=== PATIENT | male | born 1965 | race African-American/Black ===

== ENCOUNTER 2022-12-20 13:34 | Outpatient (CLI) | payer BC, SELFPAY ==
--- NOTE | ~2022-12-20 | PE_ITS ---
EXAMINATION: PET_PETPSMAST_PT DATE: 12/20/2022 16:06 INDICATION: Prostate cancer with elevated PSA level TECHNIQUE: 9.904 mCi of pipflufolastat F-18 (18-F-DCFPyL) was administered i.v. Low dose computed to mography (CT) images were acquired from the base of the brain to the base of the brain to the proxima l thighs for attenuation correction and anatomic localization. Positron emission tomography (PET) ambreen ges were acquired in the same distribution beginning 100 minutes after injection. Images including fu sed PET/CT images were reconstructed in axial, coronal, and sagittal planes. Automated exposure contr ol technique was employed. The dose-length product was 617.14mGy-cm. COMPARISON: None FINDINGS: Head/neck: Typical pattern of symmetric physiologic increased activity in the lacrimal, parotid and submandibula r glands as well as along the mucosa of the nasal and oral cavities, the lida-, naso- and hypopharynx, the glottis and esophagus. No pathologically enlarged cervical lymphadenopathy or suspicious foci of increased uptake in the visualized head or neck. Chest: There are couple calcified nodule along the right minor fissure which along with calcified right reagan r lymph nodes are consistent with old granulomatous disease. No suspicious pulmonary nodules, pneumon ia, pulmonary edema or pleural effusion. Heart size is normal. No pericardial effusion. Thoracic aort a is normal in caliber. Abdomen/pelvis/proximal thighs: Physiologic renal accumulation and excretion of activity in the kidneys, bladder and along portions o f ureters. Normal degree and slightly heterogenous pattern of increased uptake throughout the liver a nd spleen without radiologic correlate or dominant PSMA avid lesion. The gallbladder, pancreas and bi lateral adrenal glands are normal. Moderate uptake scattered throughout the bowels with typical duode nal and proximal jejunal predominance and without radiologic correlate, also likely physiologic. Ther e are couple foci of increased PSMA activity at the right side of the prostate with maximal SUV of 6. 6. Grayscale imaging is limited and the SUV value may be underestimated due to dense metallic streak artifact extending across the prostate and portions of the central deep pelvis resulting from bilater al total hip arthroplasties. No other abnormal foci of increased uptake or pathologically enlarged ly mphadenopathy in the abdomen, pelvis or proximal thighs. Musculoskeletal: No suspicious lytic, blastic or PSMA avid bone lesions. IMPRESSION: 1. 2 foci of increased PSMA uptake in the right side of the prostate consistent with provided history of prostate cancer. Assessment at this location and portions of the surrounding deep pelvis is limit ed by dense metallic streak artifact related to a lateral total hip arthroplasties. 2. No evident metastatic disease. Reviewed, dictated and finalized at location A. IMPRESSION: 1. 2 foci of increased PSMA uptake in the right side of the prostate consistent with provided history of prostate cancer. Assessment at this location and port ions of the surrounding deep pelvis is limited by dense metallic streak artifac t related to a lateral total hip arthroplasties. 2. No evident metastatic disease.
== END 2022-12-20 13:35 | disposition home or self-care (01) ==
LOC: ANHIMG 13:35
PROVIDERS: PCP Family Medicine; Visit Provider Urology
DX: C61 Malignant neoplasm of prostate (principal)
CPT/HCPCS: 78815; A9595

== ENCOUNTER 2023-01-25 10:01 | Outpatient (CLI) | payer BC, SELFPAY ==
--- NOTE | 2023-01-25 11:36 | ECG_ITS ---
Measurements Intervals [place] Rate: 66 P: 49 [place]: 175 QRS: 16 QRSD: 97 T: 36 QT: 365 QTc: 385 Interpretive Statements SINUS RHYTHM BASELINE ARTIFACT- I, II, III, AVR, AVL, AVF NORMAL ECG NO PREVIOUS ECG AVAILABLE FOR COMPARISON Electronically Signed On 01-25-2023 12:33:34 CDT by Harris Gold D.O.
[2023-01-25 12:11] LABS: Basophils Percent Auto 0.3 % (0.2-1.2); Eosinophils Absolute Auto 0.1 K/mm3 (0-0.3); Eosinophils Percent Auto 1.1 % (0-4.4); Hematocrit 47.2 % (42.0-52.0); Hemoglobin 15.9 g/dL (14.0-18.0); Immature Granulocyte Absolute 0.01 K/mm3 (0.00-0.031); Immature Granulocyte Percent A 0.2 % (0-0.5); Lymphocytes Absolute Auto 3.57 K/mm3 (0.9-3.2); Lymphocytes Percent Auto 57.5 % (18.3-44.2); Mean Corpuscular HGB Conc 33.7 g/dl (32-36); Mean Corpuscular Hemoglobin 31.1 pg (26-34); Mean Corpuscular Volume 92.2 fl (80-100); Mean Platelet Volume 9.4 fl (7.4-10.4); Monocytes Absolute Auto 0.5 K/mm3 (0.1-0.6); Monocytes Percent Auto 7.6 % (2.6-8.5); Neutrophils Absolute Auto 2.1 K/mm3 (1.3-6.7); Neutrophils Percent Auto 33.3 % (45.5-73.1); Platelet Count Result 197 k/mm3 (150-375); Red Blood Count 5.12 M/mm3 (4.6-6.20); Red Cell Distribution Width 12.3 % (11.5-14.5); White Blood Count 6.2 K/mm3 (4.5-10.0)
[2023-01-25 12:20] LABS: Alanine Aminotransferase 21 U/L (6-50); Albumin Level 4.8 g/dL (3.5-5.1); Alkaline Phosphatase 68 U/L (38-126); Anion Gap 7 mmol/L (8-16); Aspartate Amino Transferase 27 U/L (17-59); Bilirubin,Total 0.6 mg/dL (0.2-1.3); Blood Urea Nitrogen 15 mg/dL (9-20); Calcium 9.5 mg/dL (8.4-10.2); Carbon Dioxide 31 mmol/L (22-30); Chloride 103 mmol/L (98-107); Estimated Glomerular Filt Rate > 60; Glucose 87 mg/dL (65-110); Potassium 4.5 mmol/L (3.4-5.0); Sodium 141 mmol/L (137-145)
[2023-01-25 12:26] LABS: INR 0.9; Prothrombin Time 12.7 Seconds (11.1-14.7)
[2023-01-25 12:27] LABS: Partial Thromboplastin Time 26.9 SECONDS (22.3-36.8)
== END 2023-01-25 10:02 | disposition home or self-care (01) ==
PROVIDERS: PCP Family Medicine; Visit Provider Urology
DX: C61 Malignant neoplasm of prostate (principal); Z01.818 Encounter for other preprocedural examination
CPT/HCPCS: 36415; 80053; 85025; 85610; 85730; 86850; 86900; 86901; 87086; 93005

== ENCOUNTER 2023-02-07 17:22 | Observation (INO) | payer BC, SELFPAY ==
[2023-01-25 10:36] VITALS: BMI 31.1
--- NOTE | 2023-01-25 10:53 | PC.NURSE ---
Report to the Outpatient Waiting Room, entrance under the green pavilion located off [facility], at time __6:00AM on date __02/06/23 . Planned Procedure Time: __7:30AM . Time changes happen often and if your time is changed the preop area will call you the afternoon before. - You and your visitor will be asked to self-screen and do not enter if you have any COVID symptoms. - A mask is optional within the hospital at this time. Patients may have clear liquids (water, carbonated beverages, clear teas, apple juice) until 3 hours prior to surgery with a maximum of 20 ounces. - No food from midnight until time of surgery. Take the following medications with a SIP of water the morning of surgery: ___VERAPAMIL DO NOT STOP ANY OF YOUR OTHER PRESCRIPTION MEDICATIONS PRIOR TO SURGERY ?EXCEPT THE FOLLOWING Medications to discontinue per physician ___HOLD ALL NSAIDS(IBUPROFEN) AND ALL VITAMINS/SUPPLEMENTS 7 DAYS PRE-OP PER DR JONES___ Date to take last dose___01/30/23 Please no make-up, nail vietnamese, hairspray, perfume, deodorant, or body powder the day of surgery. No jewelry (including any body piercings) or valuables the day of surgery, leave them at home. Please take a shower or bath the night before, or the morning of, surgery with an antibacterial soap. Wear comfortable, loose fitting clothing. - Jewelry must be removed prior to entering the operating room. Rings and piercings that are not removed may be cut off. - The hospital will not accept responsibility for valuables. - Please leave all valuables, including medications, at home the day of surgery. If you are going home after surgery, a licensed driver license reviewing officer must drive you home. - NO public transportation without another adult if you receive anesthesia. - We recommend that an adult stay with you for 24 hours following discharge. - We also recommend that you do not drive, make important decision, drink alcoholic beverages, or take any drugs that were not prescribed by your health care provider for at least 24 hours after your discharge time. Follow any additional instructions given to you from your surgeon. If you or anyone in your household have experienced Covid symptoms in the past week, please notify your surgeon or the nurse liaison at the phone number below for possible testing. Telephone instructions given to __PATIENT and asked if any additional questions and then verbalized understanding. Patient advised to call surgeon office or pre surgery nurse liaison [phone] if any additional questions.
[2023-01-25 11:19] VITALS: BP 128/90; PULSE 73; RESP 16; TEMP 37; O2SAT 96
[2023-02-06] VITALS (15 sets, daily range): BP systolic 98–134; BP diastolic 55–79; PULSE 65–101; RESP 16–22; TEMP 35.8–36.6; O2SAT 93–100; BMI 32.8
[2023-02-06] MEDS: LACTATED RINGERS 1,000 ML 30 ML IV CONT ×2 (06:30→13:31)
--- NOTE | 2023-02-06 06:36 | WPDANESEPPF ---
Anes - Initial Pre Proc Eval Procedure: Operation Date: 02/06/23 07:30 Proposed Procedures p Robotic Assisted Nerve Sparing Prostatectomy, Possible Lymph Node Dissection - Wan Ferrara MD Date/Time: 02/06/23 06:36 Surgeon: Wan Ferrara MD Pre Op Diagnosis: Prostate Ca Patient Data Age: 57 Gender: M Height: 1.78 m Weight: 98.3 kg Last Vital Signs Temp 37.0 C 01/25/23 11:19 Pulse 73 01/25/23 11:19 Resp 16 01/25/23 11:19 BP 128/90 01/25/23 11:19 Pulse Ox 96 01/25/23 11:19 O2 Del Method Room Air 01/25/23 11:19 Allergies Allergy/AdvReac Type Severity Reaction Status Date / Time topiramate [From Topamax] AdvReac Numbness Verified 01/25/23 10:18 in hands/toes Home Medications Medication Instructions Recorded Confirmed Type acetaminophen 500 mg capsule 1,000 mg PO Q6H PRN Pain 01/25/23 01/25/23 History atogepant 60 mg tablet (Qulipta) 60 mg PO DAILY 01/25/23 01/25/23 History cholecalciferol (vitamin D3) 50 50 mcg PO DAILY 01/25/23 01/25/23 History mcg (2,000 unit) capsule divalproex 500 mg tablet,delayed 500 mg PO HS 01/25/23 01/25/23 History release famotidine 20 mg tablet 20 mg PO DAILY 01/25/23 01/25/23 History ibuprofen 800 mg tablet 800 mg PO Q6H PRN Pain 01/25/23 01/25/23 History pantoprazole 40 mg tablet,delayed 40 mg PO QAM 01/25/23 01/25/23 History release sumatriptan succinate 100 mg tablet 100 mg PO ONCE PRN Migraine 01/25/23 01/25/23 History Headache sumatriptan succinate 6 mg/0.5 mL 6 mg subcut ONCE PRN Migraine 01/25/23 01/25/23 History subcutaneous pen injector Headache trazodone 50 mg tablet 50 mg PO HS 01/25/23 01/25/23 History verapamil 240 mg 24 hr 240 mg PO QAM 01/25/23 01/25/23 History capsule,extended release Patient hx anesthesia problems: none Family hx anesthesia problems: none Results Review: All pre-operative results and documents have been reviewed as part of the pre-operative evaluation. [facility] Past Medical History Medical History (Updated 02/06/23 @ 06:37 by Trell Ricketts MD) Prostate cancer Surgical History Surgical History (Updated 02/06/23 @ 06:37 by Trell Ricketts MD) History of shoulder surgery History of total hip arthroplasty Social History Social History Smoking packs per day: 0.2 Smoking cigarettes per day: 4.0 Years smoked: 2 Smoking pack-years: 0.40 Smoking status: Former smoker Smoking end date: 11/04/01 Alcohol intake: current Substance use: never Living arrangements: with family Additional living arrangements comments: Spiritual care concerns: No Anes - Eval Final PreProcedure Day of Procedure 02/06/23 06:36 Patient weight: overweight Heart: regular rate and rhythm Lungs: clear to auscultation Airway: Mallampati scale class II and other (upper denture) Neurological: alert and oriented Last oral intake: >/= 8 hours ASA classification: III Emergent: no Anesthetic plan: proceed Anesthesia type and monitoring: general ETT and standard monitoring Results Review: All pre-operative results and documents have been reviewed as part of the pre-operative evaluation. Informed Consent: The patient's anesthetic plan and its attendant risks and benefits were discussed with the patient/family/POA. Questions were solicited and answers provided to the satisfaction of the patient/family/POA.
--- NOTE | 2023-02-06 07:09 | WPDHPUPDATE1 ---
History and Physical Update Update Date/Time: 02/06/23 07:09 History and Physical has been reviewed, including an updated exam of the patient. There are NO changes in the patient's condition. Risks, benefits, and alternatives have been discussed and questions answered. Patient agrees to proceed with procedure. Proceed with robotic assist nerve sparing prostatectomy with possible plnd
[2023-02-06] MEDS: ceFAZolin 2 GM/D5W 50 ML 2 GM/50 ML BAG IVPB (07:24)
[2023-02-06] MEDS: BUPivacaine HCL 0.5% 10 ML AMP 30 ML INFILTRATE (08:42)
[2023-02-06] MEDS: ceFAZolin SODIUM 1 GM VIAL IV PUSH (11:24)
[2023-02-06] MEDS: METHYLENE BLUE 0.5% INJ 10 ML AMPULE 5 ML IV PUSH (12:38)
--- NOTE | 2023-02-06 13:21 | P.OP_ITS ---
Procedure Note - Detailed Date of Procedure 02/06/23 Pre-op Diagnosis Prostate Ca Post-op Diagnosis Same Procedure Performed Robotic assisted nerve-sparing prostatectomy with bilateral pelvic lymphadenectomy. Repair of cystotomy Surgeon Wan Ferrara MD Anesthesia General Description of Procedure Patient is taken the operative suite correctly identified. Once anesthesia was obtained was placed in dorsal lithotomy in prepped and draped usual sterile fashion. Twenty Colombian Aggarwal was placed. Supraumbilical incision was then made carried down to the rectus fascia. Could not adequately insufflated with a Veress needle in thus a cutdown was performed. Camera port trocar was then placed and secured. Other working ports were placed. He was placed in steep Trendelenburg position and the robot was docked. He had quite a bit of extensive adhesions along the sigmoid area and along the appendix on the right. These were taken down. Posterior approach was then performed. Patient had very lax abdominal wall. Both seminal vesicles were dissected down their entirety. The vas were transected. The plane between the rectum and the prostate was developed. The bladder was then taken down. Space of Retzius was developed bilaterally. Puboprostatic were taken down. Dorsal venous complex was isolated and secured to the pubic bone. The bladder neck was then opened anteriorly. Posterior bladder neck was also transected. It was noted that it was adhered somewhat to the prostate. It was noted later that there was a small cystotomy in the posterior bladder wall. The pedicles were then taken down and clipped. Bilateral nerve-sparing was performed. Dorsal venous complex was transected as was the urethra. Bilateral pelvic lymph node dissection performed with the boundaries being the external iliac vein Iggy's ligament, and the bifurcation. The right obturator packet had a clip placed on it. All specimens were placed in Endo-Catch bag. The posterior cystotomy was then closed using 4-0 Vicryl running fashion. I took more from the bladder neck as the mucosa had inverted. This was sent as a separate specimen. I then everted the mucosa using 4-0 Vicryl. Anastomosis was performed using V lock in a running fashion. There appeared to be good approximation of the urethral mucosa to the bladder neck mucosa. Indigo carmine was then given to the patient. Eighteen Colombian Aggarwal was placed with 10 cc in the balloon. It irrigated nicely. CATHERINE drain was then placed and secured to the skin. The robot was undocked. Specimen was then brought out through the midline incision. Rectus fascia was closed using 0 Vicryl in a running fashion. Subcuticular stitches were placed. It was noted that there was indigo in the bag at the termination of the procedure. Patient is taken recovery stable condition. Will make a decision regarding leaving the catheter in for 2 weeks prior to obtaining a cystogram. All lap count needle count sponge counts were correct. This completes dictation. Please send a copy this to my office. Estimated Blood Loss 100 Drains Yes Packing No Pathology Yes Complications No immediate complications Condition Stable Disposition PACU
[2023-02-06] MEDS: fentaNYL CITRATE INJ (*CRX) 100 MCG/2 ML VIAL 25 MCG IV PUSH ×6 (14:03→15:08)
[2023-02-06] MEDS: HYOSCYAMINE SULFATE 0.125 MG TABLET PO (14:39)
--- NOTE | 2023-02-06 15:48 | ADMGEN ---
This patient, Chris Sen, was admitted to [facility] Surg Room 321-02. Patient/family oriented to hospital policies and general routines including ID bracelet, bed and alarms, visiting hours, pain management, procedures, bathroom and other care routines, personal items, smoking policy, room service/diet, and visiting hours. Information on how to activate the Rapid Response Team has been discussed. Patient/Family are encouraged to report perceived risks to care and to ask questions if they do not understand what they are told or what they should do.
[2023-02-06] MEDS: MORPHINE SULFATE (*CRX) 2 MG/ML INJ IV PUSH ×3 (16:06→22:49)
[2023-02-06] MEDS: LACTATED RINGERS 1,000 ML 125 ML IV CONT ×2 (16:06→22:49)
[2023-02-06] MEDS: HYDROcodone/acetaminophen (*CRX) 5-325 MG TABLET 2 TAB PO (20:25)
[2023-02-06] MEDS: traZODone HCL 50 MG TABLET PO (20:25)
[2023-02-07] VITALS (8 sets, daily range): BP systolic 123–153; BP diastolic 78–87; PULSE 86–106; RESP 16–20; TEMP 36.2–37.7; O2SAT 95–98; BMI 10.0
--- NOTE | ~2023-02-07 | CT_ITS ---
Non-contrast CT scan of the Abdomen and Pelvis Clinical indication: Abdominal pain status post recent prostatectomy Technique: 2.5 mm axial scans were obtained through the abdomen and pelvis without intravenous or or al contrast. Dose reduction technique was used on this scan by utilizing automated exposure control a nd iterative reconstruction technique. The dose-length product (DLP) was 998.07 mGy-cm. Findings: Images through the lung bases reveal bibasilar atelectasis. There is no evidence of renal or ureteral calculi. The kidneys and the ureters are nondilated. The liver, spleen, pancreas, gallbladder, and adrenals appear normal. There is no aortic aneurysm. There is no evidence of bowel obstruction. Percutaneous drain or catheter is present entering via the right mid abdomen. There is small amount of pneumoperitoneum. There is extensive subcutaneous soft t issue edema along the anterior abdominal wall bilaterally, extending along the bilateral flank region s, and into the perineum/scrotum. Images through the pelvis are degraded by streak artifact from bilateral hip arthroplasty. There is a 3.6 x 2.1 cm low-density collection at the left pelvis region (axial image 150), somewhat nonspecifi c.. Urinary bladder poorly evaluated. No gross pelvic mass seen. Impression: Small amount of pneumoperitoneum, as well as extensive subcutaneous soft tissue emphysema, as detaile d above, all which is consistent with postoperative change, related to recent prostatectomy. 3.6 x 2.1 cm low-density collection in the left pelvic region, as detailed above, somewhat indetermin ate. Likely diagnostic considerations could include seroma, lymphocele, or resolving hematoma. Bibasilar atelectatic change in the lungs. Reviewed, dictated and finalized at location M. Impression: Small amount of pneumoperitoneum, as well as extensive subcutaneous soft tissue emphysema, as detailed above, all which is consistent with postoperative benjamin e, related to recent prostatectomy. 3.6 x 2.1 cm low-density collection in the left pelvic region, as detailed abov e, somewhat indeterminate. Likely diagnostic considerations could include serom a, lymphocele, or resolving hematoma. Bibasilar atelectatic change in the lungs.
[2023-02-07] MEDS: MORPHINE SULFATE (*CRX) 2 MG/ML INJ IV PUSH ×3 (03:31→22:18)
[2023-02-07] MEDS: HYDROcodone/acetaminophen (*CRX) 5-325 MG TABLET 2 TAB PO ×2 (05:52→21:47)
[2023-02-07] MEDS: LACTATED RINGERS 1,000 ML 125 ML IV CONT ×2 (05:55→17:23)
[2023-02-07 06:13] LABS: Hematocrit 36.7 % (42.0-52.0); Hemoglobin 12.5 g/dL (14.0-18.0)
[2023-02-07 06:31] LABS: Anion Gap 5 mmol/L (8-16); Blood Urea Nitrogen 13 mg/dL (9-20); Calcium 8.6 mg/dL (8.4-10.2); Carbon Dioxide 28 mmol/L (22-30); Chloride 105 mmol/L (98-107); Estimated CRCL calculation 94 ml/min; Estimated Glomerular Filt Rate > 60; Glucose 118 mg/dL (65-110); Sodium 138 mmol/L (137-145)
--- NOTE | 2023-02-07 08:10 | WPDUROPN2 ---
Progress Note: A&P Assessment and Plan (1) Adenocarcinoma of prostate: Code(s): C61 - Malignant neoplasm of prostate Status: Acute Assessment and Plan: Doing well overall. Needs to increase his activity. Has good urine output and normal renal function. Denies any flank pain. Will plan on leaving CATHERINE in longer possibly to being discharged home with it since he had a cystotomy repair. Will also plan on leaving the Aggarwal catheter in for 2 weeks prior to cystogram. Subjective Subjective Date/Time Seen: 02/07/23 08:10 Post Op day: 1 (Robotic assisted nerve-sparing prostatectomy with bilateral pelvic lymphadenectomy. Repair of cystotomy) Principal diagnosis: Adenocarcinoma prostate Interval history: Patient is doing well overall. He had a robotic prostatectomy and pelvic lymph node dissection. There was a cystotomy along posterior wall which was closed. His urine output has been excellent his creatinine is normal at 0.9. His main issue is some nonspecific abdominal discomfort. There was no discrete area. Exam Const: General: cooperative and comfortable Resp: Effort & Inspection: normal respiratory effort Cardio: Rate: regular rate Rhythm: regular rhythm GI: Inspection: normal to inspection and non-distended GI Palp: Yes Soft to palpation Urinary Catheter: Urinary Catheter: patent and draining and urine clear Objective Data Vital Signs Vital Signs: Vital Signs - 24 hr 02/06/23 13:31 02/06/23 14:00 02/06/23 14:15 Temperature 36.6 C Pulse Rate 78 79 75 Respiratory Rate 20 16 16 Blood Pressure 98/59 L 109/64 123/59 L Pulse Oximetry 96 98 100 Oxygen Delivery Simple Face Mask Simple Face Mask Simple Face Mask Oxygen Flow Rate 6 6 6 02/06/23 14:30 02/06/23 14:45 02/06/23 15:00 Temperature Pulse Rate 76 77 77 Respiratory Rate 16 16 16 Blood Pressure 122/67 117/57 L 119/55 L Pulse Oximetry 97 98 96 Oxygen Delivery Room Air Room Air Room Air Oxygen Flow Rate 02/06/23 15:15 02/06/23 13:45 02/06/23 15:35 Temperature 36.2 C L 35.9 C L Pulse Rate 76 79 76 Respiratory Rate 16 18 22 H Blood Pressure 125/62 115/60 126/74 Pulse Oximetry 94 97 93 Oxygen Delivery Room Air Simple Face Mask Oxygen Flow Rate 6 02/06/23 15:50 02/06/23 16:20 02/06/23 17:20 Temperature 35.8 C L 35.9 C L 36.1 C L Pulse Rate 79 78 83 Respiratory Rate 20 22 H 18 Blood Pressure 122/69 125/79 123/77 Pulse Oximetry 96 98 98 Oxygen Delivery Oxygen Flow Rate 02/06/23 20:00 02/06/23 20:32 02/07/23 01:01 Temperature 36.6 C 36.9 C Pulse Rate 83 101 H 106 H Respiratory Rate 18 18 16 Blood Pressure 119/78 123/83 Pulse Oximetry 98 96 95 Oxygen Delivery Room Air Oxygen Flow Rate 02/07/23 05:01 Temperature 36.6 C Pulse Rate 100 Respiratory Rate 18 Blood Pressure 136/85 Pulse Oximetry 95 Oxygen Delivery Oxygen Flow Rate Intake/Output Intake/Output: Intake & Output 02/04/23 02/05/23 02/06/23 02/07/23 23:59 23:59 23:59 23:59 Intake Total 1250 1220 Output Total 215 3060 Balance 1035 -1840 Meds/Results Medications: Active Medications Generic Name Dose Route Start Last Admin Trade Name Freq PRN Reason Stop Dose Admin Hydrocodone Bitart/Acetaminophen 1 tab 02/06/23 15:16 Hydrocodone/Acetaminophen (*Crx) 5-325 Mg Tablet PO Q6H PRN Pain Rated 1-3 Hydrocodone Bitart/Acetaminophen 2 tab 02/06/23 15:16 02/07/23 05:52 Hydrocodone/Acetaminophen (*Crx) 5-325 Mg Tablet PO 2 tab Q6H PRN Administration Pain Rated 4-6 Hyoscyamine 0.125 mg 02/06/23 15:16 Hyoscyamine Sulfate 0.125 Mg Tablet SUBLINGUAL Q4H PRN Bladder Spasm Lactated Ringer's 1,000 mls @ 125 mls/hr 02/06/23 15:16 02/07/23 05:55 Lr - Lactated Ringers Iv IV CONT 125 mls/hr .Q8H JI Administration Levofloxacin 500 mg 02/07/23 09:00 Levofloxacin 500 Mg Tablet PO DAILY JI Morphine Sulfate 2 mg 02/06/23 15:16 02/07/23 03:31 M
--- NOTE | 2023-02-07 09:37 | WPDANESPN ---
Anes - Prog Note Post-Op Date/Time: 02/07/23 09:37 Cardiovascular status: normal Respiratory status: normal Airway patency: baseline Mental status: baseline Post-Op hydration status: normal Vital Signs: Last Vital Signs Temp 97.1 F L 02/07/23 09:16 Pulse 94 02/07/23 09:16 Resp 18 02/07/23 09:16 BP 127/78 02/07/23 09:16 Pulse Ox 97 02/07/23 09:16 O2 Del Method Room Air 02/06/23 20:00 O2 Flow Rate 6 02/06/23 14:15 Pain Score (VAS): 8 I/O: Intake & Output 02/06/23 02/07/23 02/07/23 23:59 07:59 15:59 Intake Total 1000 1220 Output Total 50 3060 550 Balance 950 -1840 -550 Laboratory Tests 02/07/23 06:05 02/07/23 06:05 02/07/23 06:05 Hgb 12.5 L D Hct 36.7 L Sodium 138 Potassium 4.0 Chloride 105 Carbon Dioxide 28 Anion Gap 5 L BUN 13 Creatinine 0.90 Estim Creat Clear Calc 94 Estimated GFR > 60 Glucose 118 H Calcium 8.6 Post-procedural complaints: nausea Patient Feedback: Patient satisfied with anesthetic care. Other Findings: pt complains of feeling bloated, denies flatus.
[2023-02-07] MEDS: levoFLOXacin 500 MG TABLET PO (09:40)
[2023-02-07] MEDS: VERAPAMIL HCL ER 240 MG TABLET.ER PO (09:41)
[2023-02-07] MEDS: HYDROcodone/acetaminophen (*CRX) 5-325 MG TABLET 1 TAB PO (15:47)
[2023-02-07] MEDS: traZODone HCL 50 MG TABLET PO (21:47)
[2023-02-07] MEDS: DOCUSATE SODIUM 100 MG CAPSULE PO (21:47)
[2023-02-08] MEDS: LACTATED RINGERS 1,000 ML 125 ML IV CONT ×2 (01:37→08:49)
[2023-02-08 02:33] LABS: Glucose Point of Care 117 mg/dl (65-105)
[2023-02-08 02:45] VITALS: BP 139/89; PULSE 94; RESP 18; TEMP 37.1; O2SAT 98
--- NOTE | 2023-02-08 02:56 | PC.NURSE ---
Patient conts to c/o abdominal pain that feels like gas pain. Says he feels like he's about to explode. Spoke with Dr. Orosco (on-call Urology) at this time and explained patient's pain and inability to pass gas since surgery. Also explained that patient becomes diaphoretic and dizzy when up, so not tolerating activity. Dr. Orosco says that patient needs to rest, it's 2:30 in the morning and Dr. Ferrara can address patient's issues in the morning. If patient needs order for KUB, Alem can do when he rounds on patient.
[2023-02-08 05:21] VITALS: BP 115/82; PULSE 91; RESP 16; TEMP 36.8; O2SAT 94
--- NOTE | 2023-02-08 06:06 | PC.NURSE ---
Patient reports that he has passed a significant amount of gas and has some abdominal relief. Declines any PRN pain medications at this time.
[2023-02-08 06:31] LABS: Basophils Percent Auto 0.2 % (0.2-1.2); Eosinophils Percent Auto 0.3 % (0-4.4); Hematocrit 34.7 % (42.0-52.0); Hemoglobin 11.9 g/dL (14.0-18.0); Immature Granulocyte Absolute 0.02 K/mm3 (0.00-0.031); Immature Granulocyte Percent A 0.2 % (0-0.5); Lymphocytes Absolute Auto 2.83 K/mm3 (0.9-3.2); Lymphocytes Percent Auto 29.5 % (18.3-44.2); Mean Corpuscular HGB Conc 34.3 g/dl (32-36); Mean Corpuscular Hemoglobin 31.5 pg (26-34); Mean Corpuscular Volume 91.8 fl (80-100); Mean Platelet Volume 9.4 fl (7.4-10.4); Monocytes Absolute Auto 0.8 K/mm3 (0.1-0.6); Monocytes Percent Auto 7.9 % (2.6-8.5); Neutrophils Absolute Auto 5.9 K/mm3 (1.3-6.7); Neutrophils Percent Auto 61.9 % (45.5-73.1); Platelet Count Result 144 k/mm3 (150-375); Red Blood Count 3.78 M/mm3 (4.6-6.20); Red Cell Distribution Width 12.1 % (11.5-14.5); White Blood Count 9.6 K/mm3 (4.5-10.0)
[2023-02-08 06:46] LABS: Anion Gap 6 mmol/L (8-16); Blood Urea Nitrogen 13 mg/dL (9-20); Calcium 8.4 mg/dL (8.4-10.2); Carbon Dioxide 28 mmol/L (22-30); Chloride 102 mmol/L (98-107); Estimated CRCL calculation 94 ml/min; Estimated Glomerular Filt Rate > 60; Glucose 111 mg/dL (65-110); Potassium 3.7 mmol/L (3.4-5.0); Sodium 136 mmol/L (137-145)
[2023-02-08] MEDS: DOCUSATE SODIUM 100 MG CAPSULE PO (08:43)
[2023-02-08] MEDS: VERAPAMIL HCL ER 240 MG TABLET.ER PO (08:43)
[2023-02-08] MEDS: levoFLOXacin 500 MG TABLET PO (08:43)
[2023-02-08] MEDS: HYDROcodone/acetaminophen (*CRX) 5-325 MG TABLET 2 TAB PO ×2 (08:46→16:06)
--- NOTE | 2023-02-08 13:24 | WPDUROPN2 ---
Progress Note: A&P Assessment and Plan (1) Adenocarcinoma of prostate: Code(s): C61 - Malignant neoplasm of prostate Status: Acute Assessment and Plan: CT scan was done to rule out any post operative changes or ilius. CT scan was normal and not concerning. Pt. is able to walk today without weakness, he is tolerating pain and diet as well. Ok to discharge home today. Subjective Subjective Date/Time Seen: 02/08/23 13:24 Post Op day: 2 (Robotic assisted nerve-sparing prostatectomy with bilateral pelvic lymphadenectomy. Repair of cystotomy) Principal diagnosis: Adenocarcinoma prostate Interval history: Patient is doing well overall. He had a robotic prostatectomy and pelvic lymph node dissection. There was a cystotomy along posterior wall which was closed. His urine output has been .excellent his creatinine is normal at 0.7. His main issue is some nonspecific abdominal discomfort, but is passing flatus. There was concern from the nursing staff for an ileus last night. He also had an episode of diaphoresis and weakness when trying to walk in his room yesterday and had to be lowered to the ground to avoid a fall. Review of Systems Cardiovascular: Cardiovascular: Denies chest pain Gastrointestinal: Gastrointestinal: Reports abdominal pain, Reports constipation, Denies diarrhea, Reports nausea and Denies vomiting Genitourinary: Genitourinary: Denies hematuria, Denies oliguria, Denies dysuria, Denies flank pain, Denies nocturia, Denies urinary frequency, Denies urinary hesitancy, Denies urinary incontinence and Denies urinary urgency Exam Const: General: cooperative Resp: Effort & Inspection: normal respiratory effort Cardio: Rate: regular rate GI: GI Palp: Yes Soft to palpation and Yes Tenderness to palpation present (GI) (at incisions, all are well approximated, no drainage or redness) : General: Yes no CVA tenderness Extrem: Right lower extremity: no edema Left lower extremity: no edema Objective Data Vital Signs Vital Signs: Vital Signs - 24 hr 02/07/23 16:00 02/07/23 21:17 02/07/23 20:00 Temperature 99.9 F H 97.8 F Pulse Rate 96 91 Respiratory Rate 20 18 Blood Pressure 153/86 H 138/87 Pulse Oximetry 98 96 96 Oxygen Delivery Room Air 02/08/23 02:45 02/08/23 05:21 02/08/23 08:00 Temperature 98.7 F 98.2 F Pulse Rate 94 91 Respiratory Rate 18 16 Blood Pressure 139/89 115/82 Pulse Oximetry 98 94 Oxygen Delivery Room Air Intake/Output Intake/Output: Intake & Output 02/05/23 02/06/23 02/07/23 02/08/23 23:59 23:59 23:59 23:59 Intake Total 1250 2340 2650 Output Total 215 3070 2424 Balance 1035 -7110 226 Meds/Results Medications: Active Medications Generic Name Dose Route Start Last Admin Trade Name Freq PRN Reason Stop Dose Admin Hydrocodone Bitart/Acetaminophen 1 tab 02/06/23 15:16 02/07/23 15:47 Hydrocodone/Acetaminophen (*Crx) 5-325 Mg Tablet PO 1 tab Q6H PRN Administration Pain Rated 1-3 Hydrocodone Bitart/Acetaminophen 2 tab 02/06/23 15:16 02/08/23 08:46 Hydrocodone/Acetaminophen (*Crx) 5-325 Mg Tablet PO 2 tab Q6H PRN Administration Pain Rated 4-6 Docusate Sodium 100 mg 02/07/23 21:00 02/08/23 08:43 Docusate Sodium 100 Mg Capsule PO 100 mg Q12HR JI Administration Hyoscyamine 0.125 mg 02/06/23 15:16 Hyoscyamine Sulfate 0.125 Mg Tablet SUBLINGUAL Q4H PRN Bladder Spasm Lactated Ringer's 1,000 mls @ 125 mls/hr 02/06/23 15:16 02/08/23 08:49 Lr - Lactated Ringers Iv IV CONT 125 mls/hr .Q8H JI Administration Levofloxacin 500 mg 02/07/23 09:00 02/08/23 08:43 Levofloxacin 500 Mg Tablet PO 500 mg DAILY JI Administration Morphine Sulfate 2 mg 02/06/23 15:16 02/07/23 22:18 Morphine Sulfate (*Crx) 2 Mg/Ml Inj IV PUSH 2 mg Q2H PRN Administration Pain Rated 7-10 Naloxone HCl 0.1 mg 02/06/23 15:16 Naloxone Hcl 0.4 Mg/Ml Vial IV PUSH Q2M PRN
[2023-02-08 14:00] VITALS: BP 117/85; PULSE 89; RESP 20; TEMP 36.4; O2SAT 97
[2023-02-08 15:00] VITALS: BMI 10.0
--- NOTE | 2023-02-08 16:20 | PM.DS ---
DS: Admitting Diagnosis Discharge Date Prostate Cancer Admitting Diagnosis Prostate Cancer DS: Summary Hospital Course Reason for hospitalization: Prostate Cancer/Prostatectomy Hospital Course: The patient underwent a Robotic assisted nerve-sparing prostatectomy with bilateral pelvic lymphadenectomy.? Repair of cystotomy with Dr. Ferrara on 02/06/23 which he tolerated well, was transferred to recovery in stable condition and then to the floor for further observation. The first postoperative day he c/o abdominal pain, specifically needing to pass gas but couldn't. He did try to get up and walk to the hallway from his room but became diaphoretic and weak suddenly causing him to almost fall and was lowered to the ground by the nurse and his . He then remained in bed the rest of the evening only sitting on the bedside to eat dinner. He tolerated a regular diet without nausea or vomiting. He did continue to c/o abdominal pain throughout the night prompting the nurses to call our exchange with concerns of an ileus. Therefore, this morning he does state he is passing gas and feels less pain in the abdomen, his CT scan was normal. He was able to tolerate walking in the halls and more activity today without difficulty. He will be discharged home today to resume activity, no straining or heavy lifting, all home medications including antibiotics, pain medications and stool softeners. Time spent discussing smoking cessation with patient: more than 10 minutes Status at Discharge Functional status at discharge: independent ambulation Time Spent with Patient Time attestation: Total time spent providing and/or coordinating discharge services: Exam Const: General: cooperative Resp: Effort & Inspection: normal respiratory effort Cardio: Rate: regular rate GI: GI Palp: Yes Soft to palpation and Yes Tenderness to palpation present (GI) (at incisions, all are well approximated, no drainage or redness) : General: Yes no CVA tenderness Extrem: Right lower extremity: no edema Left lower extremity: no edema DS: Data Data Completed and Pending Pending studies at discharge: Pending at discharge 02/06/23 13:00 Surgical [PTH] Routine Labs on day of discharge: Labs from last 24 hours 02/08/23 02/08/23 06:03 02:31 WBC 9.6 RBC 3.78 L Hgb 11.9 L Hct 34.7 L MCV 91.8 MCH 31.5 MCHC 34.3 RDW 12.1 Plt Count 144 L MPV 9.4 Immature Gran % (Auto) 0.2 Neut % (Auto) 61.9 Lymph % (Auto) 29.5 [place] % (Auto) 7.9 Eos % (Auto) 0.3 Baso % (Auto) 0.2 Lymph # (Auto) 2.83 [place] # (Auto) 0.8 H Eos # (Auto) 0.0 Baso # (Auto) 0.0 Abs Immat Gran (auto) 0.02 Absolute Neuts (auto) 5.9 Absolute Nucleated RBC 0.0 Nucleated RBC % 0.0 Sodium 136 L Potassium 3.7 Chloride 102 Carbon Dioxide 28 Anion Gap 6 L BUN 13 Creatinine 0.90 Estim Creat Clear Calc 94 Estimated GFR > 60 Glucose 111 H POC Capillary Glucose 117 H Calcium 8.4 Discharge Plan Discharge Attending physician on discharge: Denzel Conley Discharging Clinician: Sally Son Anticipated Discharge Date/Time: 02/08/23 13:38 Patient Disposition: Home, Self-Care Activity: may shower Diet: regular Wound Care Instructions: remove dressing to shower, change dressing daily and incision open to air Discharge Instructions: Change dressing around drain daily and as needed. Wash all incisions during shower gently including your drain incision and tubing as well as catheter tubing with soap and water, then pat dry. Call the office or go to the ER if you develop a fever of >101, severe abdominal pain, a catheter that stops draining or bloody urine. Do not immerse in water such as a swimming pool, hot tub, bath tub, river, [place] etc. for [address] on pain medications. Do not lift >20lbs for 4 weeks. Do not strain to have a bowel movement, continue Colace as long as you are experiencing
== END 2023-02-08 18:35 | disposition home or self-care (01) ==
LOC: ANHSURGERY 17:24 → ANH3MEDSUR 02-08 13:44
PROVIDERS: Nurse Practitioner Adult Health; Admitting Provider Urology; PCP Family Medicine; Visit Provider Urology
PROC: 0VT04ZZ Resection of Prostate, Percutaneous Endoscopic Approach (ICD-10-PCS; CPT 55867; principal; 2023-02-06 07:30)
DX: C61 Malignant neoplasm of prostate (principal); N99.71 Accidental puncture and laceration of a genitourinary system organ or structure during a genitourinary system procedure; G89.18 Other acute postprocedural pain; R10.9 Unspecified abdominal pain; Z79.899 Other long term (current) drug therapy; Z87.891 Personal history of nicotine dependence
CPT/HCPCS: 55866; 38571; 51999; S2900; 36415; 74176; 80048; 80053; 82948; 85014; 85018; 85025; 85610; 85730; 86850; 86900; 86901; 87086; 88305; 88309; 93005; 97116; 97161; 97530; A9270; G0378; J0690; J1100; J1170; J2250; J2270; J2405; J2704; J2710; J3010; J7030; J7120; Q9968

== ENCOUNTER 2023-02-21 15:32 | Outpatient (CLI) | payer BC, SELFPAY ==
--- NOTE | ~2023-02-21 | XR_ITS ---
EXAMINATION: CYSTOGRAM DATE: 02/21/2023 16:05 INDICATION: 2 with evaluation post prostatectomy TECHNIQUE: Initial pit hand radiograph of the pelvis was performed. There was retrograde administration of Omnipaque 350 mixed with saline contrast into patient's existing Aggarwal catheter. Fluoroscopic ambreen ges of the pelvis were obtained. A post-void image was also performed. Fluoroscopy exposure time was 0.8 minutes. A total of 10 fluoroscopic images and a single radiograph are obtained. Total DAP was 11 .958 Gycm^2 FINDINGS: Facility Maintenance Supervisor image demonstrates a right lower quadrant surgical drain which extends into the deep pelvis wit h distal tip slightly to the left of the midline. There are bilateral total hip arthroplasties. Contr ast fills the bladder with no evident mucosal irregularities or extraluminal contrast extravasation. No vesicoureteral reflux. IMPRESSION: 1. No extraluminal contrast extravasation. Reviewed, dictated and finalized at location A.
== END 2023-02-21 15:33 | disposition home or self-care (01) ==
PROVIDERS: PCP Family Medicine; Visit Provider Urology
DX: C61 Malignant neoplasm of prostate (principal)
CPT/HCPCS: 51600; 74430; Q9967